=== PATIENT | male | born 1955 | race Caucasian/White ===

== ENCOUNTER 2021-09-09 10:38 | Inpatient (IN) ==
[2021-09-09] MEDS ORDERED: CeFAZolin Syr 2,000MG/20 ML 2,000 MG/20 ML SYRINGE IVPB ONE (11:16)
[2021-09-09] MEDS ORDERED: Ondansetron 4 MG/2 ML VIAL IVP PRN (11:16)
[2021-09-09] MEDS ORDERED: *HR* FentaNYL (PF) 100 MCG/2 ML VIAL IVP PRN (11:16)
[2021-09-09] MEDS ORDERED: *HR* OxyCODONE Immed Rel 5 MG TABLET PO PRN ×2 (11:16→17:48)
[2021-09-09] MEDS ORDERED: Ringers Solution, Lactated 1,000 ML IVC SCH (11:30)
[2021-09-09] MEDS ORDERED: Bupivacaine-MPF 0.25% 10 ML VIAL ONE (11:34)
[2021-09-09] MEDS ORDERED: Heparin 1,000 UNITS/500 mL 0 ML ONE ×2 (11:35→11:46)
[2021-09-09] MEDS ORDERED: Vancomycin 1,000 MG VIAL ONE (11:35)
[2021-09-09] MEDS ORDERED: Lidocaine -MPF 2% 5 ML VIAL ONE ×2 (11:38→12:04)
[2021-09-09] MEDS ORDERED: *HR* Succinylcholine 200 MG/10 ML VIAL IVP ONE (11:38)
[2021-09-09] MEDS ORDERED: Ondansetron 4 MG/2 ML VIAL ONE (11:38)
[2021-09-09] MEDS ORDERED: *HR* Propofol 200 MG/20 ML VIAL IVP ONE (11:41)
[2021-09-09] MEDS ORDERED: *HR* Remifentanil 2 MG VIAL IVP ONE (11:46)
[2021-09-09] MEDS ORDERED: *HR* Heparin 5,000 UNIT/ML VIAL ONE (11:46)
[2021-09-09] MEDS ORDERED: *HR* Phenylephrine 10 MG/ML VIAL ONE (11:46)
[2021-09-09] MEDS ORDERED: Vancomycin 1,250 MG/262.5 ML IV.SOLN IVPB ONE ×2 (12:00→23:30)
[2021-09-09] MEDS ORDERED: *HR* Rocuronium Bromide 50 MG/5 ML VIAL ONE ×2 (12:02→15:28)
[2021-09-09] MEDS ORDERED: *HR* Midazolam HCl 2 MG/2 ML VIAL ONE (12:06)
[2021-09-09] MEDS ORDERED: *HR* FentaNYL (PF) 100 MCG/2 ML VIAL ONE (12:06)
[2021-09-09] MEDS ORDERED: Vancomycin 1,000 MG, 0.9 % Sodium Chloride 1,000 ML IR ONE (12:20)
[2021-09-09] MEDS ORDERED: Lidocaine HCL 4 ML Topical Solution (Laryng-O-Jet Kit Sterile Pak) TP ONE (12:53)
[2021-09-09] MEDS ORDERED: EPHEDrine 50 MG/ML VIAL ONE (13:20)
[2021-09-09] MEDS ORDERED: Acetaminophen IV 1,000 MG/100 ML BAG IVPB ONE (13:28)
[2021-09-09] MEDS ORDERED: *HR* Vasopressin 20 UNIT/ML VIAL ONE (13:29)
[2021-09-09] MEDS ORDERED: Neostigmine Methylsulfate 3 MG/3 ML SYRINGE ONE (16:16)
[2021-09-09] MEDS ORDERED: *HR* HYDROcodone/Acet 5/325 mg TABLET PO PRN (17:48)
[2021-09-09] MEDS ORDERED: Acetaminophen 325 MG TABLET PO PRN (17:48)
[2021-09-09] MEDS ORDERED: Naloxone 0.4 MG/ML INJ IVP PRN (17:48)
[2021-09-09] MEDS ORDERED: *HR* Labetalol 20 MG/4 ML SYRINGE IVP PRN (17:48)
[2021-09-09] MEDS ORDERED: 0.9 % Sodium Chloride 1,000 ML IVC SCH (17:48)
[2021-09-09] MEDS: *HR* Metoprolol 5 MG/5 ML VIAL IVP SCH (18:24)
[2021-09-09] MEDS: CeFAZolin 2 GM/120 ML BAG IVPB SCH (20:09)
[2021-09-10 01:32] LABS: Basophils % 0.1 %; Hemoglobin 10.6 g/dL (12.9-16.9); Immature Granulocytes % 0.2 % (0-4); Lymphocytes # 0.8 K/mcL (0.6-4.6); Lymphocytes % 10.2 %; Mean Corpuscular HGB Conc 31.2 g/dL (31.6-35.5); Mean Corpuscular Hemoglobin 30.5 pg (28.0-33.3); Mean Platelet Volume 10.1 fL (9.4-12.4); Monocytes # 0.7 K/mcL (0.0-1.3); Monocytes % 8.3 %; Neutrophils # 6.5 K/mcL (1.6-8.9); Platelet Count 226 K/mcL (140-400); Red Blood Count 3.47 M/mcL (4.19-5.50); Red Cell Distribution Width 15.4 % (11.5-14.5); Segmented Neutrophils % 81.2 %; White Blood Count 8.1 K/mcL (4.3-11.1)
[2021-09-10] MEDS ORDERED: *HR* Heparin 5,000 UNIT/ML VIAL SQ SCH ×2 (06:00)
[2021-09-10] MEDS: *HR* Metoprolol 5 MG/5 ML VIAL IVP SCH ×3 (06:11→11:15)
[2021-09-10] MEDS: CeFAZolin 2 GM/120 ML BAG IVPB SCH (06:11)
[2021-09-10 07:16] VITALS: BP 118/68; TEMP 98.3; O2SAT 99
[2021-09-10 10:12] VITALS: PULSE 93
== END 2021-09-10 12:48 | disposition home or self-care (01) | DRG 254 ==
LOC: SAMDAY 10:38 → 2NNU 17:37
PROVIDERS: ADMIT Surgery; ATTEND Surgery